=== PATIENT | male | born 1995 | race African-American/Black ===

== ENCOUNTER 2020-11-04 00:08 | Emergency (ER) | payer BC | END 2020-11-04 01:45 | disposition home or self-care (01) | LOC: ERS 00:08 | DX: S83.92XA Sprain of unspecified site of left knee, initial encounter (principal); X50.1XXA Overexertion from prolonged static or awkward postures, initial encounter; Y93.67 Activity, basketball ==

== ENCOUNTER 2020-11-08 09:39 | Emergency (ER) | payer BC, SELFPAY ==
[2020-11-08] MEDS ORDERED: Ketorolac Tromethamine 30 MG/ML VIAL ONE (11:41)
== END 2020-11-08 11:50 | disposition home or self-care (01) ==
LOC: ERS 09:39
DX: M25.462 Effusion, left knee (principal)
CPT/HCPCS: 96372; 99283; J1885

== ENCOUNTER 2022-01-08 22:12 | Emergency (ER) | payer SELFPAY | END 2022-01-09 00:14 | disposition home or self-care (01) | LOC: ERS 22:12 | DX: M79.641 Pain in right hand (principal); M79.642 Pain in left hand; X50.0XXA Overexertion from strenuous movement or load, initial encounter | CPT/HCPCS: 99282 ==

== ENCOUNTER 2022-06-06 17:55 | Emergency (ER) | payer SELFPAY ==
[2022-06-06] MEDS ORDERED: Ibuprofen 200 MG TAB ONE (18:15)
== END 2022-06-06 19:03 | disposition home or self-care (01) ==
LOC: ERS 17:55
DX: S62.524A Nondisplaced fracture of distal phalanx of right thumb, initial encounter for closed fracture (principal); W23.1XXA Caught, crushed, jammed, or pinched between stationary objects, initial encounter; Y93.67 Activity, basketball